=== PATIENT | female | born 1945 | race Caucasian/White ===

== ENCOUNTER 2024-04-07 11:30 | Inpatient (IN) ==
[2024-04-07] MEDS ORDERED: IOPAMIDOL 100 ML BOTTLE IV ONE (11:31)
[2024-04-07] MEDS: IPRATROPIUM/ALBUTEROL 3 ML AMPUL.NEB NEB ONE ×2 (12:03→15:42)
[2024-04-07 12:31] LABS: Basophils # (Auto) 0.03 K/mcL (0.00-0.30); Basophils % (Auto) 0.4 % (0.0-2.0); Eosinophils # (Auto) 0 K/mcL (0.00-0.70); Eosinophils % (Auto) 0 % (0.0-7.0); Hematocrit 47.5 % (34.1-44.9); Hemoglobin 15.9 g/dL (11.2-15.7); Lymphocytes # (Auto) 1.28 K/mcL (1.50-4.80); Lymphocytes % (Auto) 17.3 % (15.5-49.0); Mean Cell Volume 102.4 fL (80.0-100.0); Mean Corpuscular HGB Conc 33.5 g/dL (31.0-36.0); Mean Platelet Volume 10.8 fL (8.8-12.5); Monocytes % (Auto) 9.5 % (1.0-12.0); Neutrophils % (Auto) 72.5 % (38.0-78.0); Platelet Count 142 K/mcL (140-440); RBC 4.64 M/mcL (3.59-5.38); Red Cell Distribution Width 12.2 % (11.5-14.5); WBC 7.4 K/mcL (4.5-11.0)
[2024-04-07 12:43] LABS: ALT/SGPT 31 U/L (<40); AST/SGOT 37 U/L (<32); Albumin 4.3 gm/dL (3.2-5.2); Albumin/Globulin Ratio 1.5 (1.0-2.3); Alkaline Phosphatase 71 U/L (39-117); Bilirubin,Total 0.3 mg/dL (0.1-1.0); Blood Urea Nitrogen 33 mg/dL (8-23); Calcium 9.8 mg/dL (8.6-10.4); Carbon Dioxide 22 mmol/L (22-30); Chloride 100 mmol/L (96-108); Globulin 2.9 gm/dL (2.2-3.7); Glomerular Filtration Rate 94; Glucose 196 mg/dL (70-105); Potassium 3.8 mmol/L (3.3-5.1); Sodium 138 mmol/L (133-145)
[2024-04-07] MEDS: guaiFENesin 600 MG TAB.SR.12H PO ONE (16:39)
[2024-04-07 17:32] LABS: C-Reactive Protein 2.92 mg/dL (0.03-0.80)
[2024-04-07] MEDS ORDERED: POLYETHYLENE GLYCOL 3350 17 GM PACKET PO PRN (18:04)
[2024-04-07] MEDS ORDERED: ACETAMINOPHEN 325 MG TABLET PO PRN (18:04)
[2024-04-07] MEDS ORDERED: SENNOSIDES 1 TABLET PO PRN (18:04)
[2024-04-07] MEDS ORDERED: ONDANSETRON 4 MG/2 ML VIAL IV PRN (18:04)
[2024-04-07] MEDS ORDERED: POTASSIUM CHLORIDE 20 MEQ TABLET PO PRN ×2 (18:04)
[2024-04-07] MEDS ORDERED: METOCLOPRAMIDE 10 MG/2 ML VIAL IV PRN (18:04)
[2024-04-07] MEDS ORDERED: MAGNESIUM SULFATE 2 GM/50 ML BAG IV PRN (18:04)
[2024-04-07] MEDS ORDERED: POTASSIUM CHLORIDE 40 MEQ in DEXTROSE 5% IN WATER 500 ML IV PRN (18:04)
[2024-04-07] MEDS: IPRATROPIUM/ALBUTEROL 3 ML AMPUL.NEB NEB SCH (18:54)
[2024-04-07] MEDS: BUDESONIDE 0.5 MG/2 ML AMPUL.NEB ONE (18:54)
[2024-04-07] MEDS: BUDESONIDE 0.5 MG/2 ML AMPUL.NEB NEB SCH (19:00)
[2024-04-07] MEDS: 0.9 % SODIUM CHLORIDE 500 ML IV ONE (19:11)
[2024-04-07] MEDS: 0.9 % SODIUM CHLORIDE 10 ML SYRINGE IV SCH (19:11)
[2024-04-07] MEDS: DOCUSATE SODIUM 100 MG CAPSULE PO SCH (19:22)
[2024-04-07] MEDS: AZITHROMYCIN IV SCH (19:29)
[2024-04-07] MEDS: SODIUM CHLORIDE 0.9% IV SCH (19:29)
[2024-04-07] MEDS: methylPREDNISolone SOD SUCC 125 MG/2 ML VIAL IV SCH (21:41)
[2024-04-08 06:40] LABS: ALT/SGPT 22 U/L (<40); AST/SGOT 27 U/L (<32); Albumin 3.6 gm/dL (3.2-5.2); Albumin/Globulin Ratio 1.3 (1.0-2.3); Alkaline Phosphatase 56 U/L (39-117); Bilirubin,Direct < 0.2 mg/dL (0-0.3); Bilirubin,Total 0.3 mg/dL (0.1-1.0); Blood Urea Nitrogen 17 mg/dL (8-23); Calcium 9.1 mg/dL (8.6-10.4); Carbon Dioxide 28 mmol/L (22-30); Chloride 105 mmol/L (96-108); Globulin 2.7 gm/dL (2.2-3.7); Glomerular Filtration Rate 94; Glucose 163 mg/dL (70-105); Lactate Dehydrogenase 166 U/L (135-225); Phosphorous 3.1 mg/dL (2.5-4.5); Potassium 4.2 mmol/L (3.3-5.1); Sodium 143 mmol/L (133-145); Triglycerides 115 mg/dL (<150); Uric Acid 4.4 mg/dL (2.5-8.0)
[2024-04-08 06:41] LABS: Basophils # (Auto) 0.01 K/mcL (0.00-0.30); Basophils % (Auto) 0.3 % (0.0-2.0); Eosinophils # (Auto) 0 K/mcL (0.00-0.70); Eosinophils % (Auto) 0 % (0.0-7.0); Hematocrit 43.9 % (34.1-44.9); Hemoglobin 14.5 g/dL (11.2-15.7); Lymphocytes # (Auto) 0.84 K/mcL (1.50-4.80); Lymphocytes % (Auto) 25.4 % (15.5-49.0); Mean Cell Volume 104.8 fL (80.0-100.0); Monocytes # (Auto) 0.11 K/mcL (0.10-0.90); Monocytes % (Auto) 3.3 % (1.0-12.0); Neutrophils % (Auto) 70.7 % (38.0-78.0); Platelet Count 131 K/mcL (140-440); RBC 4.19 M/mcL (3.59-5.38); Red Cell Distribution Width 12.4 % (11.5-14.5); WBC 3.3 K/mcL (4.5-11.0)
[2024-04-08] MEDS: HYDROcodone/APAP 10/325MG TABLET PO SCH (08:36)
[2024-04-08] MEDS: ENOXAPARIN 30 MG/0.3 ML SYRINGE SQ SCH (08:42)
[2024-04-08] MEDS: CARTEOLOL 1% OPHTHALMIC SCH (08:42)
[2024-04-08] MEDS: LEVOTHYROXINE 50 MCG TABLET PO SCH (08:42)
[2024-04-08] MEDS ORDERED: HYDROcodone/APAP 10/325MG TABLET PO PRN (10:39)
[2024-04-08] MEDS: AZITHROMYCIN 500 MG in 0.9 % SODIUM CHLORIDE 250 ML IV SCH (10:48)
[2024-04-08] MEDS: IPRATROPIUM/ALBUTEROL 3 ML AMPUL.NEB NEB PRN (14:15)
[2024-04-08] MEDS: methylPREDNISolone SOD SUCC 125 MG/2 ML VIAL IV SCH (14:43)
[2024-04-08] MEDS: CARTEOLOL 1% OP SCH (21:02)
[2024-04-09 06:23] LABS: Basophils # (Auto) 0.01 K/mcL (0.00-0.30); Basophils % (Auto) 0.1 % (0.0-2.0); Eosinophils # (Auto) 0 K/mcL (0.00-0.70); Eosinophils % (Auto) 0 % (0.0-7.0); Hematocrit 41.1 % (34.1-44.9); Hemoglobin 13.8 g/dL (11.2-15.7); Lymphocytes # (Auto) 1.22 K/mcL (1.50-4.80); Lymphocytes % (Auto) 15.9 % (15.5-49.0); Mean Cell Volume 103.5 fL (80.0-100.0); Mean Corpuscular HGB Conc 33.6 g/dL (31.0-36.0); Mean Platelet Volume 10.6 fL (8.8-12.5); Monocytes # (Auto) 0.49 K/mcL (0.10-0.90); Monocytes % (Auto) 6.4 % (1.0-12.0); Neutrophils % (Auto) 77.3 % (38.0-78.0); Platelet Count 148 K/mcL (140-440); RBC 3.97 M/mcL (3.59-5.38); Red Cell Distribution Width 12.3 % (11.5-14.5); WBC 7.7 K/mcL (4.5-11.0)
[2024-04-09 06:57] LABS: ALT/SGPT 21 U/L (<40); AST/SGOT 23 U/L (<32); Albumin 3.6 gm/dL (3.2-5.2); Albumin/Globulin Ratio 1.4 (1.0-2.3); Alkaline Phosphatase 51 U/L (39-117); Bilirubin,Direct < 0.2 mg/dL (0-0.3); Bilirubin,Total 0.3 mg/dL (0.1-1.0); Blood Urea Nitrogen 16 mg/dL (8-23); C-Reactive Protein 0.64 mg/dL (0.03-0.80); Calcium 9.2 mg/dL (8.6-10.4); Carbon Dioxide 29 mmol/L (22-30); Chloride 108 mmol/L (96-108); Globulin 2.5 gm/dL (2.2-3.7); Glomerular Filtration Rate 101; Glucose 161 mg/dL (70-105); Lactate Dehydrogenase 157 U/L (135-225); Phosphorous 3.3 mg/dL (2.5-4.5); Potassium 3.9 mmol/L (3.3-5.1); Sodium 147 mmol/L (133-145); Triglycerides 88 mg/dL (<150); Uric Acid 3.4 mg/dL (2.5-8.0)
[2024-04-09] MEDS: DEXTROSE 5% IN WATER 500 ML IV ONE ×2 (08:14→16:25)
[2024-04-09 15:47] LABS: Sodium 146 mmol/L (133-145)
[2024-04-09] MEDS: methylPREDNISolone SOD SUCC 40 MG/ML VIAL IV SCH (16:25)
[2024-04-10 06:44] LABS: Blood Urea Nitrogen 16 mg/dL (8-23); Calcium 9.1 mg/dL (8.6-10.4); Carbon Dioxide 32 mmol/L (22-30); Chloride 104 mmol/L (96-108); Glomerular Filtration Rate 101; Glucose 150 mg/dL (70-105); Potassium 4.2 mmol/L (3.3-5.1); Sodium 146 mmol/L (133-145)
[2024-04-10] MEDS ORDERED: DEXTROSE 5% IN WATER 500 ML IV ONE (08:30)
[2024-04-10] MEDS: HYDROCHLOROTHIAZIDE 25 MG TABLET PO ONE ×3 (09:13→09:27)
[2024-04-10 15:09] LABS: Sodium 143 mmol/L (133-145)
[2024-04-10] MEDS ORDERED: predniSONE 20 MG TABLET PO SCH (17:30)
== END 2024-04-10 17:20 | disposition home or self-care (01) | DRG 190 ==
LOC: ED 11:30 → ICU 18:00 → MEDSUR 04-09 17:36
PROVIDERS: ADMIT Internal Medicine; ATTEND Internal Medicine